=== PATIENT | female | born 1985 | race Caucasian/White ===

== ENCOUNTER 2017-12-01 17:52 | Emergency (ER) | payer BC, SELFPAY | END 2017-12-01 18:45 | disposition left against medical advice (07) | LOC: UTC 18:03 | PROVIDERS: Emergency Provider Nurse Practitioner Family | DX: Z53.29 Procedure and treatment not carried out because of patient's decision for other reasons (principal) ==

== ENCOUNTER 2024-01-16 17:58 | Outpatient (CLI) | payer BC, SELFPAY ==
[2024-01-16 18:59] LABS: HCG,Quantitative 12237 mIU/ml (0-5.42)
[2024-01-18 10:17] LABS: Progesterone 5.8 ng/mL (.)
== END 2024-01-16 23:59 ==
PROVIDERS: PCP Nurse Practitioner Family; Visit Provider Nurse Practitioner Obstetrics & Gynecology
DX: O26.891 Other specified pregnancy related conditions, first trimester (principal); Z3A.12 12 weeks gestation of pregnancy
CPT/HCPCS: 84144; 84702

== ENCOUNTER 2024-01-20 15:21 | Outpatient (CLI) | payer BC, SELFPAY ==
[2024-01-20 15:49] LABS: Basophils % 0.4 % (0.1-2.0); Eosinophils % 0.7 % (0.1-12.0); Hemoglobin 12.8 g/dL (12.2-16.2); Lymphocytes # 1.2 K/mm3 (0.7-4.5); Lymphocytes % 21.6 % (10-50); Mean Corpuscular HGB Conc 34.6 g/dL (31.8-35.4); Mean Corpuscular Hemoglobin 35.2 pg (27.0-31.2); Mean Corpuscular Volume 101.8 fl (81-99); Mean Platelet Volume 8.9 fl (7.4-10.4); Monocytes # 0.3 K/mm3 (0.1-1.0); Monocytes % 5.6 % (1.7-9.3); Neutrophils # 4.1 K/mm3 (1.8-7.8); Neutrophils % 71.7 % (37.0-80.0); Platelet Count 218 K/mm3 (142-424); Red Blood Count 3.64 M/mm3 (4.20-5.40); White Blood Count 5.7 K/mm3 (4.8-10.8)
[2024-01-21 06:23] LABS: Rubella Antibodies, IgG 2.71 index (Immune >0.99)
[2024-01-21 13:12] LABS: Rapid Plasma Reagin Ab Titer Non Reactive titer (NonRea<1:1)
[2024-01-23 10:23] LABS: HIV Screen 4th Generation wRfx Non Reactive; Hepatitis B Surface Antigen Negative
[2024-01-23 10:24] LABS: Hepatitis C Antibody Non Reactive
== END 2024-01-20 23:59 ==
LOC: LAB 15:22
PROVIDERS: PCP Nurse Practitioner Family; Visit Provider Nurse Practitioner Obstetrics & Gynecology
DX: O26.891 Other specified pregnancy related conditions, first trimester (principal); Z3A.12 12 weeks gestation of pregnancy
CPT/HCPCS: 36415; 85025; 86593; 86703; 86762; 86850; 87086; 87340; 87380; G0432

== ENCOUNTER 2024-01-20 16:46 | Outpatient (CLI) | payer BC, SELFPAY | END 2024-01-20 23:59 | LOC: LAB.DROPOF 16:47 | PROVIDERS: PCP Nurse Practitioner Obstetrics & Gynecology; Visit Provider Nurse Practitioner Obstetrics & Gynecology | DX: Z3A.12 12 weeks gestation of pregnancy (principal) ==

== ENCOUNTER 2024-01-28 13:51 | Outpatient (CLI) | payer BC, SELFPAY ==
--- NOTE | 2024-01-28 13:51 | US_ITS ---
PROCEDURE: US OB <= 14 WEEKS FETUS CLINICAL INDICATION: for dates COMPARISON: No exams were available for comparison FINDINGS: Transvaginal sonographic images of the pelvis were obtained. From her last menstrual period she is 13weeks 4days. An intrauterine gestational sac is present without a pole. The yolk sac is possibly collapsed within the gestational sac. The sac correlates to a gestational age of 7weeks 5days. heart tones are absent. Yolk sac absent. The right ovary is seen and appears normal. Right ovary has a polycystic appearance. There is a corpus luteum in the right ovary measuring 1.7 cm x 1.3 cm. The left ovary is seen and appears normal. Left ovary has a polycystic appearance. There is no fluid in the cul-de-sac. IMPRESSION: 1. Gestational sac within the uterine cavity with no pole present. 2. Likely blighted ovum. 3. Both ovaries have a polycystic appearance. 4. Should correlate with serial quantitative beta HCGs. 5. Repeat ultrasound within a week. Dictated by: Rohit Mackenzie MD 01/28/2024 17:28 Rohit Mackenzie MD in [facility] 01/28/2024 17:28
[2024-01-28 15:59] LABS: HCG,Quantitative 4387 mIU/ml (0-5.42)
== END 2024-01-28 23:59 ==
LOC: RAD 13:51
PROVIDERS: PCP Nurse Practitioner Family; Visit Provider Nurse Practitioner Obstetrics & Gynecology
DX: O26.891 Other specified pregnancy related conditions, first trimester (principal); Z3A.01 Less than 8 weeks gestation of pregnancy
CPT/HCPCS: 36415; 76801; 84702

== ENCOUNTER 2024-01-30 18:07 | Outpatient (CLI) | payer BC, SELFPAY ==
[2024-01-30 19:24] LABS: HCG,Quantitative 4188 mIU/ml (0-5.42)
== END 2024-01-30 23:59 ==
LOC: LAB 18:08
PROVIDERS: PCP Nurse Practitioner Family; Visit Provider Nurse Practitioner Obstetrics & Gynecology
DX: Z32.00 Encounter for pregnancy test, result unknown (principal)
CPT/HCPCS: 36415; 84702

== ENCOUNTER 2024-02-02 10:33 | Outpatient (CLI) | payer BC, SELFPAY ==
--- NOTE | 2024-02-02 10:34 | US_ITS ---
PROCEDURE: US OB <= 14 WEEKS FETUS CLINICAL INDICATION: Check Viability of Feturs/Dates COMPARISON: US US OB <= 14 WEEKS FETUS from 01/28/2024 FINDINGS: Transvaginal sonographic images of the pelvis were obtained. From her last menstrual period she is 14weeks 2days. An intrauterine gestational sac is present. heart tones are absent. Yolk sac is collapsing. The yolk sac measures 3.6mm. The right ovary is seen and appears normal. A corpus luteum is seen in the right ovary. The left ovary is seen and appears normal. There is no fluid in the cul-de-sac. IMPRESSION: 1. An intrauterine gestational sac is present currently measuring 3.2 cm in size. It has increased slightly in size. 2. pole is present but no heart rate activity and no flow is seen. 3. There appears to be a collection of blood at the upper cervix/lower uterine segment. 4. Both ovaries are seen and appear normal. 5. No fluid in the cul-de-sac. 6. With decreasing beta HCGs likely missed . Dictated by: Rohit Mackenzie MD 02/04/2024 03:18 Rohit Mackenzie MD in OV 02/04/2024 03:18
== END 2024-02-02 23:59 ==
LOC: RAD 10:34
PROVIDERS: PCP Nurse Practitioner Family; Visit Provider Nurse Practitioner Obstetrics & Gynecology
DX: O36.80X0 Pregnancy with inconclusive fetal viability, not applicable or unspecified (principal); Z3A.13 13 weeks gestation of pregnancy
CPT/HCPCS: 76801

== ENCOUNTER 2024-02-05 16:07 | Outpatient (CLI) | payer BC, SELFPAY ==
[2024-02-05 16:46] LABS: Basophils % 0.2 % (0.1-2.0); Eosinophils % 0.3 % (0.1-12.0); Hematocrit 39.4 % (37.0-47.0); Hemoglobin 12.9 g/dL (12.2-16.2); Lymphocytes # 1.3 K/mm3 (0.7-4.5); Lymphocytes % 16.4 % (10-50); Mean Corpuscular HGB Conc 32.7 g/dL (31.8-35.4); Mean Corpuscular Hemoglobin 33.1 pg (27.0-31.2); Mean Corpuscular Volume 101.3 fl (81-99); Mean Platelet Volume 8.6 fl (7.4-10.4); Monocytes # 0.4 K/mm3 (0.1-1.0); Monocytes % 4.4 % (1.7-9.3); Neutrophils # 6.4 K/mm3 (1.8-7.8); Neutrophils % 78.6 % (37.0-80.0); Platelet Count 200 K/mm3 (142-424); Red Blood Count 3.89 M/mm3 (4.20-5.40); Red Cell Distribution Width 13.8 % (11.5-17.5); White Blood Count 8.1 K/mm3 (4.8-10.8)
[2024-02-05 17:20] LABS: HCG,Quantitative 1928 mIU/ml (0-5.42)
== END 2024-02-05 23:59 ==
LOC: LAB 16:08
PROVIDERS: PCP Nurse Practitioner Family; Visit Provider Obstetrics & Gynecology
DX: O03.9 Complete or unspecified spontaneous abortion without complication (principal); Z3A.01 Less than 8 weeks gestation of pregnancy
CPT/HCPCS: 36415; 84702; 85025

== ENCOUNTER 2024-02-11 18:05 | Outpatient (CLI) | payer BC, SELFPAY ==
[2024-02-11 18:39] LABS: Basophils % 0.5 % (0.1-2.0); Eosinophils % 0.3 % (0.1-12.0); Hematocrit 35.5 % (37.0-47.0); Hemoglobin 11.6 g/dL (12.2-16.2); Lymphocytes # 1.3 K/mm3 (0.7-4.5); Lymphocytes % 16.2 % (10-50); Mean Corpuscular HGB Conc 32.6 g/dL (31.8-35.4); Mean Corpuscular Hemoglobin 33.8 pg (27.0-31.2); Mean Corpuscular Volume 103.6 fl (81-99); Monocytes # 0.3 K/mm3 (0.1-1.0); Monocytes % 3.7 % (1.7-9.3); Neutrophils # 6.5 K/mm3 (1.8-7.8); Neutrophils % 79.2 % (37.0-80.0); Platelet Count 220 K/mm3 (142-424); Red Blood Count 3.43 M/mm3 (4.20-5.40); Red Cell Distribution Width 14.2 % (11.5-17.5); White Blood Count 8.2 K/mm3 (4.8-10.8)
[2024-02-11 19:23] LABS: HCG,Quantitative 165 mIU/ml (0-5.42)
== END 2024-02-11 23:59 ==
LOC: LAB 18:06
PROVIDERS: PCP Nurse Practitioner Family; Visit Provider Obstetrics & Gynecology
DX: O03.9 Complete or unspecified spontaneous abortion without complication (principal)
CPT/HCPCS: 84702; 85025

== ENCOUNTER 2024-07-19 17:54 | Outpatient (CLI) | payer BC, SELFPAY ==
[2024-07-19 20:46] LABS: HCG,Quantitative 86277 mIU/ml (0-5.42)
== END 2024-07-19 23:59 | disposition home or self-care (01) ==
LOC: LAB 17:55
PROVIDERS: PCP Nurse Practitioner Family; Visit Provider Nurse Practitioner Obstetrics & Gynecology
DX: N92.6 Irregular menstruation, unspecified (principal)
CPT/HCPCS: 36415; 84144; 84702

== ENCOUNTER 2024-07-21 17:18 | Outpatient (CLI) | payer BC, SELFPAY | END 2024-07-21 23:59 | disposition home or self-care (01) | LOC: LAB.DROPOF 17:19 | PROVIDERS: PCP Nurse Practitioner Obstetrics & Gynecology; Visit Provider Nurse Practitioner Obstetrics & Gynecology | DX: Z34.81 Encounter for supervision of other normal pregnancy, first trimester (principal) | CPT/HCPCS: 87086; 87088; 87186 ==

== ENCOUNTER 2024-07-23 14:17 | Outpatient (CLI) | payer BC, SELFPAY ==
--- NOTE | 2024-07-23 14:17 | US_ITS ---
PROCEDURE: US OB >= 14 WEEKS FETUS CLINICAL INDICATION: confirm vibility and dates COMPARISON: US US OB <= 14 WEEKS FETUS from 01/28/2024 US US OB <= 14 WEEKS FETUS from 02/02/2024 FINDINGS: Transabdominal sonographic images of the pelvis were obtained. The following parameters are obtained: From her last menstrual period she is 14weeks 6days Viable fetus in the cephalic presentation with a posterior placenta grade 1. The cervix measures heart rate: 146bpm bpm. BPD: 14weeks 6days HC: 15weeks 1day AC: 15weeks 3days FL: 14weeks 5days HC/AC: 1.17 FL/BPD: 0.58 FL/AC: 0.17 Growth percentile: 47 Amniotic fluid: Appears normal No obvious anomalies evident. profile seen, and appears normal. Left ovary: Appears normal Right ovary: Appears normal IMPRESSION: 1. Viable fetus in the cephalic presentation with a posterior placenta grade 1. 2. The fluid is within normal limits. 3. biometry is consistent with her dates and her RHINA will remain 01/15/2025. 4. Both ovaries are seen and appear normal. Dictated by: Rohit Mackenzie MD 07/23/2024 17:28 Rohit Mackenzie MD in OV 07/23/2024 17:28
== END 2024-07-23 23:59 | disposition home or self-care (01) ==
LOC: RAD 14:17
PROVIDERS: PCP Nurse Practitioner Family; Visit Provider Nurse Practitioner Obstetrics & Gynecology
DX: O36.80X0 Pregnancy with inconclusive fetal viability, not applicable or unspecified (principal); Z87.59 Personal history of other complications of pregnancy, childbirth and the puerperium; Z3A.14 14 weeks gestation of pregnancy
CPT/HCPCS: 76805

== ENCOUNTER 2024-07-27 18:05 | Outpatient (CLI) | payer BC, SELFPAY ==
[2024-07-27 18:52] LABS: Basophils % 0.5 % (0.1-2.0); Eosinophils # 0.1 K/mm3 (0.0-0.4); Eosinophils % 0.9 % (0.1-12.0); Hematocrit 36.5 % (37.0-47.0); Hemoglobin 11.9 g/dL (12.2-16.2); Lymphocytes # 1.2 K/mm3 (0.7-4.5); Lymphocytes % 22.3 % (10-50); Mean Corpuscular HGB Conc 32.5 g/dL (31.8-35.4); Mean Corpuscular Hemoglobin 32.2 pg (27.0-31.2); Mean Corpuscular Volume 99.1 fl (81-99); Mean Platelet Volume 9.1 fl (7.4-10.4); Monocytes # 0.3 K/mm3 (0.1-1.0); Monocytes % 5.2 % (1.7-9.3); Neutrophils # 3.9 K/mm3 (1.8-7.8); Neutrophils % 71.1 % (37.0-80.0); Platelet Count 240 K/mm3 (142-424); Red Blood Count 3.68 M/mm3 (4.20-5.40); Red Cell Distribution Width 14.4 % (11.5-17.5); White Blood Count 5.4 K/mm3 (4.8-10.8)
[2024-07-28 09:07] LABS: HIV (1&2) Antibody Rapid NONREACTIVE (NONREACTIVE)
[2024-07-29 09:21] LABS: HCV Ab Non Reactive (Non Reactive); Hepatitis B Surface Antigen Negative (Negative)
[2024-07-29 14:13] LABS: Rapid Plasma Reagin Ab Titer Non Reactive titer (NonRea<1:1); Rubella Antibodies, IgG 2.93 index (Immune >0.99)
== END 2024-07-27 23:59 | disposition home or self-care (01) ==
LOC: LAB 18:06
PROVIDERS: PCP Nurse Practitioner Obstetrics & Gynecology; Visit Provider Nurse Practitioner Obstetrics & Gynecology
DX: Z34.81 Encounter for supervision of other normal pregnancy, first trimester (principal)
CPT/HCPCS: 86803; 86703; 36415; 85025; 86593; 86762; 86850; 87340

== ENCOUNTER 2024-08-26 12:48 | Outpatient (CLI) | payer BC, SELFPAY ==
--- NOTE | 2024-08-26 12:48 | US_ITS ---
PROCEDURE: US OB /MATERNAL DETAIL CLINICAL INDICATION: 20 week anatomy scan COMPARISON: US US OB >= 14 WEEKS FETUS from 07/23/2024 FINDINGS: Transabdominal sonographic images of the pelvis were obtained. From her established due date she is 19 weeks 5 days. Single viable intrauterine gestation. Breech position. Placenta: Posteriorplacenta grade 1. There is an average amount of fluid. The cervix appears satisfactory. Closed and measuring 3.3 cm in length. Complete survey performed and was unremarkable on the submitted images as in PACS. No discrete anomalies identified on survey imaging by technologist. Active fetus. Three-vessel cord with satisfactory umbilical cord insertion. 4- chamber heart noted. Situs, aortic arch, LVOT, RVOT, three-vessel view appear normal. Survey of brain & ventricles Unremarkable. Cerebellum, thalamus, choroid plexus, cisterna magna appear normal. Face and neck survey unremarkable. Profile, nasion, lips and nose appeared normal. Diaphragm and chest views unremarkable. Abdomen: Both kidneys noted and unremarkable. Stomach and bladder noted and satisfactory. Spine: Survey of the spine satisfactory with no anomalies identified nor imaged. Cervical, thoracic, lower spine appear normal. Both arms and legs noted. Amniotic Fluid: Adequate. MVP 3.42 cm. Measurements: Average ultrasound age 19weeks 5days. Estimated due date by ultrasound age 0201/15/2025. Estimated weight 308g BPD = 19weeks 4days HC = 19weeks 6days AC = 20weeks FL = 19weeks 3days Growth Percentile= 45 Heart Rate = 143bpm Cerebellum = 19weeks 2days Humerus = HC/AC is 1.17 FL/BPD is 0.68 FL/AC is 0.21 IMPRESSION: 1. Viable fetus in the breech presentation with a posterior placenta grade 1. 2. The fluid is within normal limits with an MVP 3.42 cm. 3. Anatomical scan appears normal. 4. Spine appears normal but views are incomplete due to position so will repeat scan in 2-3 weeks. 5. biometry is consistent with the dates. Dictated by: Rohit Mackenzie MD 08/26/2024 14:10 Rohit Mackenzie MD in [place] 08/26/2024 14:10
== END 2024-08-26 23:59 | disposition home or self-care (01) ==
LOC: RAD 12:48
PROVIDERS: PCP Nurse Practitioner Family; Visit Provider Nurse Practitioner Obstetrics & Gynecology
DX: Z36.89 Encounter for other specified antenatal screening (principal); Z3A.20 20 weeks gestation of pregnancy
CPT/HCPCS: 76811

== ENCOUNTER 2024-09-08 13:14 | Outpatient (CLI) | payer BC, SELFPAY ==
--- NOTE | 2024-09-08 13:15 | US_ITS ---
PROCEDURE: US OB FOLLOW UP CLINICAL INDICATION: incomplete view of spine COMPARISON: US US OB >= 14 WEEKS FETUS from 07/23/2024 US US OB /MATERNAL DETAIL from 08/26/2024 FINDINGS: Transabdominal sonographic images of the pelvis were obtained. The following parameters are obtained: From her established due date she is 21weeks 4days Viable fetus in the breech presentation with a posterior placenta grade 1. The cervix measures 3.7 cm heart rate: 143bpm bpm. Amniotic fluid: Normal MVP 4.52 cm. No obvious anomalies evident. profile seen, stomach, bladder, kidneys, three-vessel cord, four chamber heart appear normal. spine: Cervical, thoracic and lower spine appear normal. Due to breech position the lower spine was not well visualized. Suggest repeat scan at 28 weeks. IMPRESSION: 1. Viable fetus in the breech presentation with a posterior placenta grade 1. 2. The fluid is within normal limits MVP 4.52 cm. 3. Limited anatomical scan appears normal. 4. The spine appears normal but the lower spine was still difficult to visualize due to position. It appears normal but suggest repeat scan at 28 weeks for completeness. Dictated by: Rohit Mackenzie MD 09/08/2024 16:21 Rohit Mackenzie MD in [place] 09/08/2024 16:21
== END 2024-09-08 23:59 | disposition home or self-care (01) ==
LOC: RAD 13:15
PROVIDERS: PCP Nurse Practitioner Family; Visit Provider Nurse Practitioner Obstetrics & Gynecology
DX: Z34.92 Encounter for supervision of normal pregnancy, unspecified, second trimester (principal); Z3A.21 21 weeks gestation of pregnancy
CPT/HCPCS: 76816

== ENCOUNTER 2024-10-25 08:15 | Outpatient (CLI) | payer BC, SELFPAY ==
[2024-10-25 08:49] LABS: Basophils % 0.3 % (0.1-2.0); Eosinophils % 0.3 % (0.1-12.0); Hematocrit 32.7 % (37.0-47.0); Hemoglobin 11.2 g/dL (12.2-16.2); Lymphocytes # 1.6 K/mm3 (0.7-4.5); Lymphocytes % 19.1 % (10-50); Mean Corpuscular HGB Conc 34.4 g/dL (31.8-35.4); Mean Corpuscular Hemoglobin 31.8 pg (27.0-31.2); Mean Corpuscular Volume 92.5 fl (81-99); Mean Platelet Volume 8.9 fl (7.4-10.4); Monocytes # 0.4 K/mm3 (0.1-1.0); Monocytes % 4.5 % (1.7-9.3); Neutrophils # 6.5 K/mm3 (1.8-7.8); Neutrophils % 75.8 % (37.0-80.0); Platelet Count 240 K/mm3 (142-424); Red Blood Count 3.53 M/mm3 (4.20-5.40); Red Cell Distribution Width 13.3 % (11.5-17.5); White Blood Count 8.6 K/mm3 (4.8-10.8)
[2024-10-25 09:12] LABS: Glucose,Fasting 96 mg/dl (74-100)
[2024-10-25 09:15] LABS: RPR W/RFX Titers Nonreactive (Nonreactive)
[2024-10-25 10:27] LABS: Glucose 1 Hour 121 mg/dL (74-100)
== END 2024-10-25 23:59 | disposition home or self-care (01) ==
LOC: LAB 08:17
PROVIDERS: PCP Nurse Practitioner Family; Visit Provider Nurse Practitioner Obstetrics & Gynecology
DX: Z34.90 Encounter for supervision of normal pregnancy, unspecified, unspecified trimester (principal)
CPT/HCPCS: 36415; 82951; 85025; 86592

== ENCOUNTER 2024-10-27 12:43 | Outpatient (CLI) | payer BC, SELFPAY ==
--- NOTE | 2024-10-27 12:44 | US_ITS ---
PROCEDURE: US OB FOLLOW UP CLINICAL INDICATION: f/u on Spine, limited views.see report COMPARISON: US US OB >= 14 WEEKS FETUS from 07/23/2024 US US OB /MATERNAL DETAIL from 08/26/2024 US US OB FOLLOW UP from 09/08/2024 FINDINGS: Transabdominal sonographic images of the pelvis were obtained. The following parameters are obtained: From her established due date she is 28weeks 4days Viable fetus in the breech presentation with a posterior placenta grade 1. The cervix measures 3.46 cm heart rate: 132bpm bpm. BPD: 27weeks 1day HC: 28weeks 2days AC: 29weeks 2days FL: 28weeks HC/AC: 1.04 FL/BPD: 0.78 FL/AC: 0.21 Growth percentile: 36 Amniotic fluid index: 9.28cm, MVP 3.37 cm No obvious anomalies evident. profile seen, stomach, bladder, kidneys, three-vessel cord, four chamber heart appear normal. The spine today appears normal. IMPRESSION: 1. Viable fetus in the breech presentation with a posterior placenta grade 1. 2. The fluid is within normal limits with an amniotic fluid index 9.28 cm. 3. Limited anatomical scan appears normal. spine is seen and a appears normal. 4. There has been good interval growth with fetus currently 36 percentile. Dictated by: Rohit Mackenzie MD 10/28/2024 05:26 Rohit Mackenzie MD in [place] 10/28/2024 05:26
== END 2024-10-27 23:59 | disposition home or self-care (01) ==
LOC: RAD 12:44
PROVIDERS: PCP Nurse Practitioner Family; Visit Provider Nurse Practitioner Obstetrics & Gynecology
DX: Z36.2 Encounter for other antenatal screening follow-up (principal); Z3A.28 28 weeks gestation of pregnancy
CPT/HCPCS: 76816

== ENCOUNTER 2024-12-21 16:35 | Outpatient (CLI) | payer BC, SELFPAY | END 2024-12-21 23:59 | disposition home or self-care (01) | LOC: LAB.DROPOF 16:35 | PROVIDERS: PCP Nurse Practitioner Obstetrics & Gynecology; Visit Provider Nurse Practitioner Obstetrics & Gynecology | DX: Z34.03 Encounter for supervision of normal first pregnancy, third trimester (principal) | CPT/HCPCS: 86403 ==

== ENCOUNTER 2025-01-10 05:06 | Inpatient (IN) | payer BC, SELFPAY ==
[2025-01-10] VITALS (19 sets, daily range): BP systolic 104–120; BP diastolic 45–78; PULSE 80–100; RESP 16–19; TEMP 36.4–37.1; O2SAT 98–100; BMI 34.2; BMI 34.0
[2025-01-10] MEDS: LACTATED RINGERS 1000ML 1,000 ML 500 ML IV (05:20)
[2025-01-10 05:31] LABS: Basophils % 0.2 % (0.1-2.0); Eosinophils % 0.1 % (0.1-12.0); Hematocrit 27.9 % (37.0-47.0); Hemoglobin 8.9 g/dL (12.2-16.2); Lymphocytes # 1.7 K/mm3 (0.7-4.5); Lymphocytes % 18.1 % (10-50); Mean Corpuscular HGB Conc 31.9 g/dL (31.8-35.4); Mean Corpuscular Volume 81.6 fl (81-99); Mean Platelet Volume 11.9 fl (7.4-10.4); Monocytes # 0.6 K/mm3 (0.1-1.0); Monocytes % 6.4 % (1.7-9.3); Neutrophils # 6.9 K/mm3 (1.8-7.8); Neutrophils % 74.7 % (37.0-80.0); Platelet Count 268 K/mm3 (142-424); Red Blood Count 3.42 M/mm3 (4.20-5.40); Red Cell Distribution Width 13.7 % (11.5-17.5); White Blood Count 9.2 K/mm3 (4.8-10.8)
[2025-01-10 05:38] LABS: Chloride 103 mmol/L (98-107); Potassium 4.4 mmoL/L (3.5-5.1); Sodium 132 mmol/L (136-145)
[2025-01-10 05:41] LABS: Anion Gap 14.4 mEq/L (5-15); Blood Urea Nitrogen 11 mg/dl (7-17); Carbon Dioxide 19 mmol/L (22.0-30.0); Creatinine Clearance Estimated 144 mL/min (50-200); Estimated Glomerular Filt Rate 112 ml/min (>60); GFR (African American) 135 ML/MIN (>60); Glucose 102 mg/dl (74-100)
[2025-01-10 05:42] LABS: Calcium 9.3 mg/dl (8.4-10.2)
[2025-01-10 06:25] LABS: Microscopic, Urine URINE MICROSCOPIC (MICROSCOPIC)
[2025-01-10 06:27] LABS: Appearance,Urine CLEAR (Clear); Blood, Urine Negative (Negative); Color,Urine YELLOW (Yellow); Glucose,Urine (UA) Negative (Negative); Ketones,Urine 1+ (Negative); Leukocyte Esterase,Urine TRACE (Negative); Nitrate,Urine Negative (Negative); Protein,Urine Negative (Negative); Specific Gravity, Urine 1.025 (1.005-1.030); Urobilinogen,Urine 0.2 EU/dl (0.2)
[2025-01-10 06:39] LABS: Barbiturates Screen,Urine Negative ng/ml (<200); Bilirubin,Urine 1+ (Negative)
[2025-01-10 06:40] LABS: Benzodiazepines Screen,Urine Negative ng/ml (<200)
[2025-01-10 06:41] LABS: Amphetamine/Metha Screen,Urine Negative ng/ml (<1000); Cannabinoid Screen,Urine Negative ng/ml (<50)
[2025-01-10 06:42] LABS: Cocaine Screen,Urine Negative ng/ml (<300); Methadone Screen,Urine Negative ng/ml (<300)
[2025-01-10 06:43] LABS: Opiate Screen,Urine Negative ng/ml (<300)
[2025-01-10 06:44] LABS: Phencyclidine Screen,Urine Negative ng/ml (<25)
[2025-01-10 06:52] LABS: Bacteria,Urine Trace /lpf; WBC,Urine Occasional #/hpf (0-3)
--- NOTE | 2025-01-10 07:02 | EXP.ANES.CKL ---
[facility] Disclaimer: The information contained in this section may have been updated after the patient was seen, as this information can be updated by other users. Medical History Spontaneous in first trimester No active medical problems Surgical History H/O: x2 2011, 2016 Family History Other No significant family history Social History Smoking Status: Never smoker alcohol intake: never substance use type: denies use current occupational status: employed Travel in the last 8 weeks: None household members: spouse marital status: number of children: 2 Have you lived/traveled outside US in past 30 days?: No Contact w/someone who lives/traveled outside US past 30 days?: No Exposure to someone with infectious disease in past 14 days?: No Do you have a fever (greater than 100.4 F or 38 C)?: No Have you tested positive for COVID-19: No Exposed to someone with COVID-19 in past 14 days?: No Do you have a sore throat?: No Do you have a cough?: No Do you have any weakness?: No Are you experiencing any nausea/vomitting?: No Do you have any diarrhea?: No Are you experiencing any unusual bleeding?: No Do you have any muscle aches/pain?: No Do you have any abdominal pain?: No Are you experiencing loss of taste or smell?: No [facility] Anesthesia Checklist Patient Identification Patient Identification: Arm Band and Family Structural Data Admitted From: Inpatient Planned Operative Procedure/s: Consent for Planned Operative Procedure(s) Verified: Yes Verified Documents: Surgical Consent and History and Physical NPO Status Verified Time NPO: 00:00 Additional verifications Patient : Yes Anesthesia Reactions: No Hx Blood Transfusions: No Blood Transfusion Reaction: No Cephalosporin Allergy: No Previous Colonoscopy: No Airway Assessment Mallampati Score:: Class III C-Spine Mobility Assessed: Yes TMJ Mobility Assessed: Yes Neurological Assessment Level of Consciousness: Awake, Alert, Appropriate and Follows Commands Hx Seizures: No Numbness or tingling in extremities: No Anesthesia Plan Anesthesia Risk discussed: Yes ASA Class: II Anesthesia Type: Regional Block
[2025-01-10] MEDS: CITRIC ACID/SODIUM CITRATE ORAL SOLN 30ML UDC 30 ML PO (07:17)
[2025-01-10] MEDS: CEFAZOLIN SODIUM 2 GM in 0.9 % SODIUM CHLORIDE 100 ML IV ×3 (07:25→22:50)
--- NOTE | 2025-01-10 08:11 | HMH.PHAINT1 ---
Pharmacy Intervention Comments: MEDICATION RECONCILIATION COMPLETED ON PATIENT USING EXTERNAL FILL HISTORY FROM PHARMACY. -CHARO MARQUEZ, LEROYD
--- NOTE | 2025-01-10 08:26 | EXP.OP.NOTE ---
Date of procedure: 01/10/25 Pre-op Diagnosis:: Term , previous section, Post-op Diagnosis:: Term , previous section, breech presentation Procedure performed:: Repeat lower segment transverse section Surgeon:: Rohit Mackenzie MD Classification And Treatment Director(s):: Dr. Gillis X RAY [employer] EQUIPMENT REPAIRER:: Colten Guevara Anesthesia: spinal Estimated blood loss (mL): 600 Clinical Note:: Is a 39-year-old 3 para 2 who was 39 weeks gestational age. She has had 2 previous sections and as result of that was offered repeat lower segment transverse section at term. Operative findings:: She delivered a liveborn female child at 7:49 AM on the morning of January 10, 2024. Baby had Apgars of 8 at 1 minute and 9 at 5 minutes. She was in the denisha breech presentation. Baby weighed 7 pounds 14 ounces. Ovaries and tubes appeared normal. Operative note:: She was taken to the operating room where spinal anesthesia was found be adequate. She was prepped and draped in normal sterile fashion in the supine position. A Leon catheter was in the bladder. A Pfannenstiel skin incision was made with knife then carried through to the underlying layer of fascia with cautery. The fascia was opened in the midline with cautery and extended laterally using Bearden scissors. [place] clamps were applied to the superior aspect of the fascial incision which was tented up and the underlying rectus muscles dissected off using cautery. The [place] clamps were then applied to the inferior aspect of the fascial incision which in a similar fashion was tented up and the underlying rectus muscles dissected off using cautery. The rectus muscles were then in the midline, the peritoneum identified, and entered sharply. The bladder was dissected away using sharp dissection. An Alfonso retractor was then inserted into the abdominal cavity. Transverse incision was made through the uterine muscle through to the amnion. This incision was then extended superiorly and inferiorly using the fingers as traction. The amnion was entered sharply with knife. There was thin meconium in the amniotic fluid. The 's breech was then delivered atraumatically. This was followed by the shoulder and the rest of the infant's body atraumatically. The oropharynx and nasopharynx were DeLee suctioned. The infant was vigorous so we allowed the cord to continue to pulsate for approximately 1 minute. The cord was then doubly clamped and cut. The was then handed off to Dr. blanc who assigned Apgars of 8 at 1 minute and 9 at 5 minutes. We then obtained cord blood. Using gentle traction on the cord and fundal massage I was able to easily deliver the placenta intact. It had a normal three-vessel cord. The uterus was then cleared of clots and debris . The uterine incision was then closed using running 0 Vicryl suture in a locked fashion. A second layer of the same suture was used to imbricate the first layer. The gutters and cul-de-sac were then cleared of clots and debris . Once again hemostasis was assured. The peritoneum was then closed with 2-0 Vicryl suture followed by reapproximation of the rectus muscle using 0 Vicryl suture. The fascia was closed using running #1 Vicryl suture. The subcutaneous tissues were then irrigated with warm water followed by closure Rusty's fascia using running 2-0 Monocryl suture. The skin was closed with absorbable rajesh. I then cleaned the skin with Hibiclens. Sterile dressings were applied. Anesthesia then performed a tap block under ultrasound guidance. She tolerated the procedure well and was taken to the recovery room in excellent condition. All sponges, instrument and needle counts were correct. Estimated blood loss was approximately 600 mL.. Condition: stable Disposition: PACU Specimens:: Products of conception Complications:: None
--- NOTE | 2025-01-10 08:35 | P.HP_ITS ---
History of Present Illness *Admission Date: 01/10/25 *Reason for visit:: Term . Previous section. Advanced maternal age *History of present illness: She is a 39-year-old 3 para 2 at 39 weeks gestational age. She has had 2 previous sections and she has a very short stature. As result of that she is offered repeat lower segment transverse section at term. O Rh+ blood Rubella immune Group B streptococcus positive PFSH PFS Disclaimer: The information contained in this section may have been updated after the patient was seen, as this information can be updated by other users. Medical History Spontaneous in first trimester No active medical problems Surgical History H/O: Family History No significant family history Social History Smoking Status: Never smoker alcohol intake: never substance use type: denies use current occupational status: employed Travel in the last 8 weeks: None household members: spouse marital status: number of children: 2 Have you lived/traveled outside US in past 30 days?: No Contact w/someone who lives/traveled outside US past 30 days?: No Exposure to someone with infectious disease in past 14 days?: No Do you have a fever (greater than 100.4 F or 38 C)?: No Have you tested positive for COVID-19: No Exposed to someone with COVID-19 in past 14 days?: No Do you have a sore throat?: No Do you have a cough?: No Do you have any weakness?: No Are you experiencing any nausea/vomitting?: No Do you have any diarrhea?: No Are you experiencing any unusual bleeding?: No Do you have any muscle aches/pain?: No Do you have any abdominal pain?: No Are you experiencing loss of taste or smell?: No Other Medical History Have you received the Flu Vaccine for this season: No Have you received the Pneumonia Vaccine: No Review of Systems Review of Systems Review of systems:: pertinent systems reviewed and negative unless documented below Meds Home Medications and Allergies Home Medications ?Medication ?Instructions ?Recorded ?Confirmed ?Type escitalopram oxalate 20 mg tablet 20 mg PO DAILY 01/20/24 01/10/25 History aspirin 81 mg chewable tablet 81 mg PO DAILY #30 tabs 07/22/24 01/10/25 Rx New Prescriptions to Start Prescriptions: Allergies Allergy/AdvReac Type Severity Reaction Status Date / Time No Known Allergies Allergy Verified 01/10/25 06:01 Exam Data for Last 24 hours Vital signs and Labs for Last 24 Hours: Temp Pulse Resp BP Pulse Ox O2 Del Method 98.8 F 100 H 19 111/77 98 Room Air 01/10/25 07:05 01/10/25 07:05 01/10/25 07:05 01/10/25 07:05 01/10/25 07:05 01/10/25 07:05 Laboratory Results - last 24 hr 01/10/25 05:12: Urine Color Yellow, Urine Appearance Clear, Urine pH 6.0, Ur Spe cific [place] 1.025, Urine Protein Negative, Urine Glucose (UA) Negative, Urine Ketones 1+, Urine Blood Negative, Urine Nitrate Negative, Urine Bilirubin 1+ A, Urine Urobilinogen 0.2, Ur Leukocyte Esterase Trace, Urine RBC None, Urine WBC Occasional, Ur Squamous Epith Cells 3-5, Urine Bacteria Trace, Urine Opiates Screen Negative, Urine Methadone Screen Negative, Ur Barbituates Screen Negative, Ur Phencyclidine Scrn Negative, Ur Amphetamines Screen Negative, U Benzodiazepines Scrn Negative, Urine Cocaine Screen Negative, U Marijuana (THC) Screen Negative 01/10/25 05:20: WBC 9.2, RBC 3.42 L, Hgb 8.9 L, Hct 27.9 L, MCV 81.6, MCH 26.0 L , MCHC 31.9, RDW 13.7, Plt Count 268, MPV 11.9 H, Neut % (Auto) 74.7, Lymph % (Auto) 18.1, [place] % (Auto) 6.4, Eos % (Auto) 0.1, Baso % (Auto) 0.2, Neut # (Auto) 6.9, Lymph # (Auto) 1.7, [place] # (Auto) 0.6, Eos # (Auto) 0.0, Baso # (Auto) 0.0, Sodium 132 L, Potassium 4.4, Chloride 103, Carbon Dioxide 19 L, Anion Gap 14.4, BUN 11, Creatinine 0.60, Estimated Creat Clear 144, Estimated GFR 112, Est GFR ( Amer) 135, Glucose 102 H, Calcium 9.3, Antibody Screen Negative, Crossmatch (AHG) See Detail I & O for Last 24 hours: Intake & Output 01/07/25 01/08/25 01/09/25 01/10/25 11:59 11:59 11:59 11:59 Weight 158 lb 0.014 oz Constitutional Constitutional: no acute distress *Routine HEENT Exam Head: Present normocephalic Eye: Present EOMI and PERRL ENT: Present mucous membranes moist *Routine Neck Exam Neck: Present supple; Absent lymphadenopathy *Routine Respiratory Exam Respiratory: Present CTA bilaterally *Routine Cardiovascular Exam Cardiovascular: Present RRR *Routine Abdominal Exam Abdominal: Present soft and normoactive bowel sounds; Absent tenderness *Routine Rectal Exam Rectal:: deferred *Routine Genitalia Exam Genitalia:: deferred *Routine Extremities Exam Extremities: Absent cyanosis, clubbing or edema *Routine Skin Exam Skin: Present warm; Absent rash *Routine Neurological Exam Neurological: Present alert and oriented X3 Assessment and Plan *Assessment and plan (1) H/O: : Problem Comment: x2 2011, 2016 Status: Acute Category: Surgical Code(s): Z98.891 - History of uterine scar from previous surgery (2) Delivery by section of full-term : Status: Acute Category: Medical Code(s): O82 - Encounter for delivery without indication (3) Breech presentation delivered: Status: Acute Category: Medical Code(s): O32.1XX0 - Maternal care for breech presentation, not applicable or unspecified (4) Advanced maternal age in multigravida: Status: Acute Qualifiers: Trimester: unspecified trimester Qualified Code(s): O09.529 - Supervision of elderly multigravida, unspecified trimester Category: Medical Code(s): O09.529 - Supervision of elderly multigravida, unspecified trimester Plan She is admitted for repeat lower segment transverse section at term.
--- NOTE | 2025-01-10 08:44 | EXP.ANES.I ---
[facility] Anesthesia Record Part I Anesthesia Record I Intake, IV Amount: 1,000 Hydration: Adequate Estimated blood loss (mL): 600 Urine output (mL): 200 Blood Products used (#): none Blood Pressure: 119/78 SaO2: 100 Pulse Rate: 95 Airway Patency: Patent Respiratory Rate: 18 Temperature: 98 F Patient is:: Awake and Stable Stable to PACU at:: 08:30
[2025-01-10] MEDS: OXYTOCIN/RINGERS LACTATE 30 UNITS/500 ML BAG 40 UNITS IV (09:00)
[2025-01-10] MEDS: LACTATED RINGERS 1000ML 1,000 ML 125 ML IV (09:00)
[2025-01-10] MEDS: KETOROLAC 30MG/ML VIAL 30 MG IV ×3 (09:38→21:00)
[2025-01-10] MEDS: ACETAMINOPHEN 500MG TAB 1000 MG PO (09:38)
--- NOTE | 2025-01-10 14:10 | EXP.ANES.II ---
[facility] Anesthesia Record Part II Anesthesia Record Part II Discharge Time: 09:00 Destination: Obstetric PACU nurse assessment reviewed?: Yes Patient Condition:: Good Anesthesia Complications:: None Swallowing reflex intact?: Yes Airway Patency: Patent Cyanosis?: No Blood Pressure: 114/61 SaO2: 100 Respiratory Rate: 18 Pulse Rate: 82 Temperature: 98 F Mental Status: Alert & Oriented Pain level:: 0 Nausea and/or vomitting:: None Intake, IV Amount: 0 Hydration: Adequate
[2025-01-10 15:12] LABS: RPR W/RFX Titers Nonreactive (Nonreactive)
[2025-01-10] MEDS: ACETAMINOPHEN 325MG/10.15ML UDC 650 MG PO ×2 (15:32→21:00)
[2025-01-10] MEDS: PRENATAL MULTIVITAMIN W/IRON 1 EACH PO (17:15)
[2025-01-11] MEDS: ACETAMINOPHEN 325MG/10.15ML UDC 650 MG PO ×4 (05:43→22:38)
[2025-01-11] MEDS: KETOROLAC 30MG/ML VIAL 30 MG IV (05:44)
[2025-01-11 06:43] LABS: Hematocrit 25.2 % (37.0-47.0)
[2025-01-11] MEDS: IRON SUCROSE COMPLEX 200 MG in 0.9 % SODIUM CHLORIDE 100 ML 220 MG IV (08:15)
--- NOTE | 2025-01-11 08:42 | EXP.ACUTE.PN ---
Subjective *Date: 01/11/25 *Time: 08:42 Interval history: She is doing very well this morning. She is eating and drinking and ambulating. Her pain is reasonably well-controlled with the tap block. She is bottlefeeding. Her lochia is normal. Her hemoglobin is 8.0 and we plan to give her an iron infusion today. Medical Exam Vital signs and Labs for Last 24 Hours: Vital Signs Temp Pulse Pulse Pulse Resp BP BP 01/10/25 20:41 97.6 F 93 H 17 118/47 L 01/10/25 16:55 98.1 F 98 H 17 108/55 L 01/10/25 14:11 18 01/10/25 11:45 97.9 F 82 17 01/10/25 11:15 86 16 01/10/25 10:45 98 H 16 01/10/25 10:30 90 16 01/10/25 10:15 84 17 01/10/25 10:00 97.6 F 85 18 01/10/25 09:45 93 H 17 01/10/25 09:30 88 16 01/10/25 09:15 85 17 01/10/25 09:00 97.8 F 88 18 01/10/25 09:00 98.0 F 82 18 01/10/25 08:50 98.0 F 83 18 01/10/25 08:46 98 F 95 H 18 119/78 BP Pulse Ox O2 Del Method 01/10/25 20:41 98 Room Air 01/10/25 16:55 98 Room Air 01/10/25 14:11 01/10/25 11:45 104/67 L 98 Room Air 01/10/25 11:15 104/54 L 98 Room Air 01/10/25 10:45 111/46 L 98 Room Air 01/10/25 10:30 112/57 L 100 Room Air 01/10/25 10:15 112/57 L 99 Room Air 01/10/25 10:00 107/51 L 99 Room Air 01/10/25 09:45 105/45 L 100 Room Air 01/10/25 09:30 108/52 L 100 Room Air 01/10/25 09:15 107/62 L 98 Room Air 01/10/25 09:00 115/65 98 Room Air 01/10/25 09:00 114/61 100 Room Air 01/10/25 08:50 106/64 L 100 Room Air 01/10/25 08:46 Intake and Output 01/10/25 01/11/25 01/11/25 19:59 03:59 11:59 Intake Total 0 / 0 Output Total 1300 / 1300 Balance -1300 / -1300 Intake: Intake, Total IV Amount 0 / 0 Output: Output, Urine Amount 200 / 200 Output, Urine Amount (Catheter) 1100 / 1100 Leon 1100 / 1100 Laboratory Results - last 24 hr 01/10/25 05:20: RPR w/Rflx to Titer Nonreactive, Blood Type O Positive, Antibody Screen Negative, Crossmatch (AHG) See Detail 01/11/25 06:09: Hgb 8.0 L, Hct 25.2 L I & O for Labs for Last 24 Hours: Intake & Output 01/08/25 01/09/25 01/10/25 01/11/25 11:59 11:59 11:59 11:59 Intake Total 1000 / 1000 0 / 0 Output Total 1300 / 1300 Balance 1000 / 1000 -1300 / -1300 Weight 158 lb 0.014 oz Head: Present atraumatic ENT: Present normal exam Neck: Present normal inspection Respiratory: Absent accessory muscle use Assessment and Plan *Assessment and plan (1) Advanced maternal age in multigravida: Status: Acute Qualifiers: Trimester: unspecified trimester Qualified Code(s): O09.529 - Supervision of elderly multigravida, unspecified trimester Category: Medical Code(s): O09.529 - Supervision of elderly multigravida, unspecified trimester (2) Breech presentation delivered: Status: Acute Category: Medical Code(s): O32.1XX0 - Maternal care for breech presentation, not applicable or unspecified (3) Delivery by section of full-term infant: Status: Acute Category: Medical Code(s): O82 - Encounter for delivery without indication (4) H/O: : Problem Comment: x2 2016 Status: Acute Category: Surgical Code(s): Z98.891 - History of uterine scar from previous surgery Plan She is doing very well this morning. We will plan to give her an iron infusion today. We will plan to send her home tomorrow.
[2025-01-11] MEDS: IBUPROFEN 400 MG TABLET 800 MG PO ×2 (12:48→18:45)
[2025-01-11] MEDS: VITAMIN B-12 1,000 MCG 1ML VIAL 1000 MCG SUBCUT (12:51)
[2025-01-11 13:08] LABS: 25-OH Vitamin D, Total 31.8 ng/mL (30-100)
[2025-01-11 13:41] LABS: Vitamin B12 256 pg/mL (239-931)
[2025-01-11] MEDS: PRENATAL MULTIVITAMIN W/IRON 1 EACH PO (16:29)
[2025-01-11 16:30] VITALS: BP 107/57; PULSE 91; RESP 18; TEMP 36.6; O2SAT 98
[2025-01-11 20:18] VITALS: BP 100/57; PULSE 103; RESP 18; TEMP 36.7; O2SAT 98
[2025-01-12] MEDS: IBUPROFEN 400 MG TABLET 800 MG PO (04:42)
[2025-01-12 04:45] VITALS: BP 112/56; PULSE 91; RESP 17; TEMP 36.1; O2SAT 99
--- NOTE | 2025-01-12 08:54 | EXP.DC.SUM ---
General Admission date:: 01/10/25 Discharge date: 01/12/25 HPI HPI HPI: She is a 39-year-old 3 para 2 at 39 weeks gestational age. She has had 2 previous sections and she has a very short stature. As result of that she is offered repeat lower segment transverse section at term. O Rh+ blood Rubella immune Group B streptococcus positive Hospital Course Hospital Course Hospital Course: She was brought in for a repeat lower segment transverse section at term. She delivered a liveborn female child at 7:49 AM on the morning of January 10, 2025. The baby weighed 7 pounds 14 ounces and had Apgars of 8 at 1 minute and 9 at 5 minutes. She has done well postoperatively and has remained afebrile without her hospitalization. She is eating and drinking and ambulating. She is bottlefeeding. Her lochia is normal. Her pain is well-controlled with the tap block. She is just taking Tylenol and ibuprofen. She had anemia before her delivery and her postoperative hemoglobin was 8.0. As result of that we elected to give her an iron infusion. I have also given her B12 since her B12 levels were borderline. She will be discharged home today to follow-up with me in approximately 2 weeks time. She will return for an iron infusion next week. We will give her another B12 shot when I see her in the office in 2 weeks. She will also continue with her vitamins and iron. Her vitamin D level was borderline so I have encouraged her to get 2000 international units of vitamin D3 as well. We will send her home with a prescription for Percocet 5/325 number 12 tablets in case she has any episodes of further pain. Her condition on discharge is stable and improved. Exam Data for Last 24 hours Vital signs and Labs for Last 24 Hours: Temp Pulse Resp BP Pulse Ox O2 Del Method 97.0 F L 91 H 17 112/56 L 99 Room Air 01/12/25 04:45 01/12/25 04:45 01/12/25 04:45 01/12/25 04:45 01/12/25 04:45 01/12/25 04:45 Laboratory Results - last 24 hr 01/11/25 : Vitamin B12 256, 25-OH Vitamin D Total 31.8 I & O for Last 24 hours: Intake & Output 01/09/25 01/10/25 01/11/25 02/19/25 11:59 11:59 11:59 11:59 Intake Total 1000 / 1000 0 / 0 Output Total 1300 / 1300 Balance 1000 / 1000 -1300 / -1300 Weight 158 lb 0.014 oz Constitutional Constitutional: no acute distress *Routine HEENT Exam Head: Present normocephalic *Routine Respiratory Exam Respiratory: Present normal respiratory effort; Absent accessory muscle use *Routine Abdominal Exam Abdominal: Present soft and surgical scars; Absent distended, rebound or guarding Comments: Her incision is clean and dry. Results Data Completed and Pending Labs on day of discharge: Labs from last 24 hours 01/11/25 Unknown Vitamin B12 256 25-OH Vitamin D Total 31.8 DS: Diagnosis Discharge Diagnosis (1) Advanced maternal age in multigravida: Status: Acute Code(s): O09.529 - Supervision of elderly multigravida, unspecified trimester Qualifiers: Trimester: unspecified trimester Qualified Code(s): O09.529 - Supervision of elderly multigravida, unspecified trimester (2) Breech presentation delivered: Status: Acute Code(s): O32.1XX0 - Maternal care for breech presentation, not applicable or unspecified (3) Delivery by section of full-term : Status: Acute Code(s): O82 - Encounter for delivery without indication (4) H/O: : Status: Acute Code(s): Z98.891 - History of uterine scar from previous surgery Problem details: x2 2011, 2017 (5) Anemia affecting fourth : Status: Acute Code(s): O99.019 - Anemia complicating , unspecified trimester Meds Home Medications and Allergies Home Medications ?Medication ?Instructions ?Recorded ?Confirmed ?Type escitalopram oxalate 20 mg tablet 20 mg PO DAILY 01/20/24 01/10/25 History oxycodone-acetaminophen 5 mg-325 1 tab PO Q6H PRN pain #12 tabs 01/12/25 Rx mg tablet New Prescriptions to Start Prescriptions: oxycodone-acetaminophen Rohit Mackenzie Allergies Allergy/AdvReac Type Severity Reaction Status Date / Time No Known Allergies Allergy Verified 01/10/25 06:01 Discharge Plan Disposition Patient Disposition: Home, Self-Care Discharge Order Discharge Orders: Discharge Order (Routine); Ordered 01/12/25 Ordered By: Rohit Mackenzie Follow up Plan Prescriptions/Medication Reconciliation: New oxycodone-acetaminophen 5-325 mg tablet 1 tab PO Q6H PRN (Reason: pain) Qty: 12 0RF Continued escitalopram oxalate 20 mg tablet 20 mg PO DAILY Patient Comments: TAKE 1 TABLET BY MOUTH EVERY DAY Discontinued aspirin 81 mg tablet,chewable 81 mg PO DAILY Qty: 30 6RF Problem Reconciliation Problems Reviewed?: Yes Patient Discharge Instructions ACTIVITY: No heavy lifting DIET: continue same diet Print Language: Mohawk Providers Primary Care Provider: Yady Lorenz Admigor Provider: Rohit Mackenzie Attending Provider: Rohit Mackenzie
[2025-01-12 09:00] VITALS: BP 111/60; PULSE 105; RESP 18; TEMP 36.6; O2SAT 98
== END 2025-01-12 10:28 | disposition home or self-care (01) | DRG 788 ==
PROVIDERS: Admitting Provider Nurse Practitioner Obstetrics & Gynecology; PCP Nurse Practitioner Family; Visit Provider Nurse Practitioner Obstetrics & Gynecology
PROC: 10D00Z1 Extraction of Products of Conception, Low, Open Approach (ICD-10-PCS; CPT 59514; principal; 2025-01-10 07:30)
DX: O32.1XX0 Maternal care for breech presentation, not applicable or unspecified (principal); Z3A.39 39 weeks gestation of pregnancy; Z37.0 Single live birth; O34.211 Maternal care for low transverse scar from previous cesarean delivery; N85.8 Other specified noninflammatory disorders of uterus; O99.02 Anemia complicating childbirth; D64.89 Other specified anemias
CPT/HCPCS: 59025; 80048; 80307; 81001; 82306; 82607; 85014; 85018; 85025; 86592; 86850; 94761; G0283; J1756; J1885; J3420; J7120